=== PATIENT | female | born 1995 | race Caucasian/White ===

== ENCOUNTER 2018-09-09 17:54 | Emergency (ER) | payer MEDICAID ==
[2018-09-09 20:26] LABS: ADD MAN DIFF? NO
[2018-09-09 20:30] LABS: BASOPHILS % 0.3 % (0.0-2.0); EOSINOPHILS # 0.1 10^3/ul (0.0-0.5); EOSINOPHILS % 1.1 % (0.0-7.0); HEMATOCRIT 39.1 % (37.0-47.0); HEMOGLOBIN 13.1 g/dl (12.0-16.0); LYMPHOCYTES # 2.4 10^3/ul (0.8-2.9); LYMPHOCYTES % 27.4 % (15.0-51.0); MEAN CORPUSCULAR HEMOGLOBIN 29.2 pg (29.0-33.0); MEAN CORPUSCULAR HGB CONC 33.5 g/dl (32.0-37.0); MEAN CORPUSCULAR VOLUME 87.1 fl (82.0-101.0); MEAN PLATELET VOLUME 10.4 fl (7.4-10.4); MONOCYTES % 10.8 % (0.0-11.0); NEUTROPHIL # 5.3 10^3/ul (1.6-7.5); NEUTROPHILS % 60.2 % (39.0-77.0); PLATELET COUNT 298 10^3/UL (140-415); RED BLOOD COUNT 4.49 10^6/ul (4.20-5.40); RED CELL DISTRIBUTION WIDTH 14.4 % (11.5-14.5)
[2018-09-09 20:30] LABS: WHITE BLOOD COUNT 8.8 10^3/ul (4.8-10.8)
[2018-09-09 20:42] LABS: ADD UMIC NO; UR ASCORBIC ACID NEGATIVE (NEGATIVE); UR BILIRUBIN (Dip) NEGATIVE (NEGATIVE); UR BLOOD (Dip) NEGATIVE (NEGATIVE); UR CLARITY SLIGHTLY CLOUDY (CLEAR); UR COLOR YELLOW (YELLOW); UR GLUCOSE (Dip) NEGATIVE (NEGATIVE); UR KETONES (Dip) TRACE mg/dL (NEGATIVE); UR LEUKOCYTE ESTERASE (Dip) NEGATIVE Leu/ul (NEGATIVE); UR MUCUS FEW /HPF (NONE SEEN); UR NITRITE (Dip) NEGATIVE (NEGATIVE); UR RBC 0 /HPF (0-5); UR SPECIFIC GRAVITY (Dip) 1.028 (1.003-1.030); UR SQUAMOUS EPITHELIAL CELL FEW /HPF (FEW); UR TOTAL PROTEIN (Dip) NEGATIVE (NEGATIVE); UR UROBILINOGEN (Dip) NEGATIVE (NEGATIVE); UR WBC 2 /HPF (0-5)
== END 2018-09-09 22:14 | disposition home or self-care (01) ==
LOC: FTE 17:54
DX: O20.9 Hemorrhage in early pregnancy, unspecified (principal); R10.2 Pelvic and perineal pain; Z3A.14 14 weeks gestation of pregnancy
CPT/HCPCS: 36415; 76801; 76817; 81001; 81003; 81025; 84702; 85025; 86900; 86901; 99284-25

== ENCOUNTER 2019-04-22 21:19 | Emergency (ER) | payer MEDICAID | END 2019-04-22 22:31 | disposition home or self-care (01) | LOC: FTE 21:19 | DX: O26.893 Other specified pregnancy related conditions, third trimester (principal); R21 Rash and other nonspecific skin eruption; Z3A.37 37 weeks gestation of pregnancy | CPT/HCPCS: 99282; Z7502 ==

== ENCOUNTER 2019-04-25 11:18 | Inpatient (IN) | payer MEDICAID ==
[2019-04-25] MEDS ORDERED: MISOPROSTOL 200 MCG TAB PR ×2 (13:00→19:30)
[2019-04-25] MEDS ORDERED: CEFAZOLIN 2 GM/50 ML (PMX) 50 ML IVPB (13:00)
[2019-04-25] MEDS ORDERED: OXYTOCIN 30 UNITS/LR 500 ML IV ×2 (13:00→19:30)
[2019-04-25] MEDS ORDERED: CARBOPROST 250 MCG INJ IM ×2 (13:00→19:30)
[2019-04-25] MEDS ORDERED: TERBUTALINE 1 MG/ML INJ SC (13:00)
[2019-04-25] MEDS ORDERED: METHYLERGONOVINE 0.2 MG INJ IM ×2 (13:00→19:30)
[2019-04-25 13:27] LABS: ADD MAN DIFF? NO
[2019-04-25 13:30] LABS: BASOPHILS % 0.1 % (0.0-2.0); EOSINOPHILS # 0.1 10^3/ul (0.0-0.5); EOSINOPHILS % 1.1 % (0.0-7.0); HEMATOCRIT 25.9 % (37.0-47.0); HEMOGLOBIN 7.5 g/dl (12.0-16.0); LYMPHOCYTES # 1.2 10^3/ul (0.8-2.9); LYMPHOCYTES % 13.7 % (15.0-51.0); MEAN CORPUSCULAR HEMOGLOBIN 21.4 pg (29.0-33.0); MEAN PLATELET VOLUME 9.9 fl (7.4-10.4); MONOCYTE # 0.7 10^3/ul (0.3-0.9); MONOCYTES % 7.7 % (0.0-11.0); NEUTROPHIL # 6.5 10^3/ul (1.6-7.5); NEUTROPHILS % 76.2 % (39.0-77.0); NUCLEATED RED BLOOD CELLS # 0.1 10^3/ul (0.0-0.0); NUCLEATED RED BLOOD CELLS% 0.7 /100WBC (0.0-0.0); PLATELET COUNT 234 10^3/UL (140-415); RED CELL DISTRIBUTION WIDTH 19.6 % (11.5-14.5)
[2019-04-25 13:30] LABS: WHITE BLOOD COUNT 8.6 10^3/ul (4.8-10.8)
[2019-04-25] MEDS: LACTATED RINGER'S 1,000 ML IV ×2 (13:39→14:27)
[2019-04-25 13:48] LABS: INR 0.95; PROTIME 12.8 Sec (11.9-14.9)
[2019-04-25 13:49] LABS: PARTIAL THROMBOPLASTIN TIME 28.4 Sec (23.0-35.0)
[2019-04-25 14:24] LABS: HEPATITIS B SURFACE ANTIGEN NEGATIVE (NEGATIVE)
[2019-04-25] MEDS ORDERED: morphine SULFATE/PF (10 MG/10 ML) INJ (17:57)
[2019-04-25] MEDS ORDERED: FENTAnyl 50 MCG/ML VIAL (17:57)
[2019-04-25] MEDS ORDERED: OXYTOCIN 10 UNIT INJ (18:08)
[2019-04-25] MEDS ORDERED: ONDANSETRON 4 MG INJ (18:08)
[2019-04-25] MEDS ORDERED: PHENYLephrine (100 MCG/ML) 10ML SYG (18:10)
[2019-04-25 18:26] LABS: RAPID PLASMA REAGIN NONREACTIVE (NR)
[2019-04-25] MEDS ORDERED: TRIMETHOBENZAMIDE 100 MG/ML VIAL IM (18:30)
[2019-04-25] MEDS ORDERED: NALOXONE (0.4 MG/ML) INJ IV (18:30)
[2019-04-25] MEDS ORDERED: ONDANSETRON 4 MG INJ IV (18:30)
[2019-04-25] MEDS ORDERED: NALBUPHINE HCL (10 MG/1 ML) INJ IV (18:30)
[2019-04-25] MEDS ORDERED: DIPHENHYDRAMINE 50 MG INJ IV (18:30)
[2019-04-25] MEDS ORDERED: METOCLOPRAMIDE 10 MG INJ (18:55)
[2019-04-25] MEDS ORDERED: LANOLIN HPA 1 PKT TOP (19:30)
[2019-04-25] MEDS ORDERED: METHYLERGONOVINE 0.2 MG TAB PO (19:30)
[2019-04-25] MEDS: morphine 2 MG INJ IV (20:51)
[2019-04-25] MEDS: SENNA/DOCUSATE NA (8.6MG/50MG) TAB PO (22:15)
[2019-04-25] MEDS: OXYTOCIN 30 UNITS/LR 500 ML IV (23:01)
[2019-04-26] MEDS: LACTATED RINGER'S 1,000 ML IV (01:33)
[2019-04-26 05:14] LABS: ADD MAN DIFF? NO
[2019-04-26 05:24] LABS: BASOPHILS % 0.1 % (0.0-2.0); EOSINOPHILS % 0.1 % (0.0-7.0); HEMATOCRIT 26.6 % (37.0-47.0); LYMPHOCYTES % 7.2 % (15.0-51.0); MEAN CORPUSCULAR HEMOGLOBIN 22.3 pg (29.0-33.0); MEAN CORPUSCULAR HGB CONC 30.1 g/dl (32.0-37.0); MEAN CORPUSCULAR VOLUME 74.3 fl (82.0-101.0); MEAN PLATELET VOLUME 10.2 fl (7.4-10.4); MONOCYTE # 1.1 10^3/ul (0.3-0.9); MONOCYTES % 7.6 % (0.0-11.0); NEUTROPHIL # 11.8 10^3/ul (1.6-7.5); NEUTROPHILS % 84.3 % (39.0-77.0); NUCLEATED RED BLOOD CELLS # 0.1 10^3/ul (0.0-0.0); NUCLEATED RED BLOOD CELLS% 0.5 /100WBC (0.0-0.0); PLATELET COUNT 236 10^3/UL (140-415); RED BLOOD COUNT 3.58 10^6/ul (4.20-5.40); RED CELL DISTRIBUTION WIDTH 19.5 % (11.5-14.5)
[2019-04-26 05:49] LABS: ANION GAP 4 (5-13); BLOOD UREA NITROGEN 8 mg/dl (7-20); CALCIUM 8.9 mg/dl (8.4-10.2); CARBON DIOXIDE 23 mmol/L (21-31); CHLORIDE 104 mmol/L (97-110); CREATININE 0.48 mg/dl (0.44-1.00); Estimated GFR > 60 mL/min (>60); GLUCOSE 60 mg/dl (70-220); POTASSIUM 4.2 mmol/L (3.5-5.1); SODIUM 131 mmol/L (135-144)
[2019-04-26] MEDS: morphine 2 MG INJ IV ×3 (07:50→15:51)
[2019-04-26] MEDS: SENNA/DOCUSATE NA (8.6MG/50MG) TAB PO ×2 (08:38→21:34)
[2019-04-26] MEDS: OXYTOCIN 30 UNITS/LR 500 ML IV (08:47)
[2019-04-26] MEDS ORDERED: HYDROCODONE/APAP (5/325) TAB PO (09:30)
[2019-04-26] MEDS: HYDROCODONE/APAP (5/325) TAB PO (19:24)
[2019-04-26] MEDS: IBUPROFEN 800 MG TAB PO (21:34)
[2019-04-27] MEDS: HYDROCODONE/APAP (5/325) TAB PO ×2 (08:15→14:49)
[2019-04-27] MEDS: SENNA/DOCUSATE NA (8.6MG/50MG) TAB PO ×2 (10:06→21:20)
[2019-04-27] MEDS: MAGNESIUM HYDROXIDE 30ML CUP PO (22:21)
[2019-04-27] MEDS: BISACODYL 10 MG SUPP PR (22:21)
[2019-04-28 05:22] LABS: ADD MAN DIFF? NO
[2019-04-28 05:26] LABS: BASOPHILS % 0.1 % (0.0-2.0); EOSINOPHILS # 0.2 10^3/ul (0.0-0.5); EOSINOPHILS % 1.3 % (0.0-7.0); HEMATOCRIT 25.6 % (37.0-47.0); HEMOGLOBIN 7.6 g/dl (12.0-16.0); LYMPHOCYTES # 1.3 10^3/ul (0.8-2.9); LYMPHOCYTES % 8.8 % (15.0-51.0); MEAN CORPUSCULAR HGB CONC 29.7 g/dl (32.0-37.0); MEAN CORPUSCULAR VOLUME 74.2 fl (82.0-101.0); MEAN PLATELET VOLUME 10.2 fl (7.4-10.4); MONOCYTE # 1.5 10^3/ul (0.3-0.9); MONOCYTES % 9.8 % (0.0-11.0); NEUTROPHIL # 11.8 10^3/ul (1.6-7.5); NEUTROPHILS % 78.6 % (39.0-77.0); NUCLEATED RED BLOOD CELLS% 0.3 /100WBC (0.0-0.0); PLATELET COUNT 281 10^3/UL (140-415); RED BLOOD COUNT 3.45 10^6/ul (4.20-5.40); RED CELL DISTRIBUTION WIDTH 20.4 % (11.5-14.5)
[2019-04-28] MEDS: DIPHTH/TET/ACEL PERTUSS (ADULT) 0.5 ML VIAL IM* (09:00)
[2019-04-28] MEDS: MEASLES,MUMPS,RUBELLA VACCINE INJ SC* (09:00)
[2019-04-28] MEDS: SENNA/DOCUSATE NA (8.6MG/50MG) TAB PO (10:01)
[2019-04-28] MEDS: HYDROCODONE/APAP (5/325) TAB PO (11:26)
== END 2019-04-28 18:57 | disposition home or self-care (01) | DRG 788 ==
LOC: OBT 11:18 → MS1 04-26 01:13 → L-D 11:18 → OBT 12:29 → L-D 12:30
PROVIDERS: Obstetrics & Gynecology
PROC: 10D00Z1 Extraction of Products of Conception, Low, Open Approach (ICD-10-PCS; principal; 2019-04-25 17:30)
PROC: 3E033VJ Introduction of Other Hormone into Peripheral Vein, Percutaneous Approach (ICD-10-PCS; 2019-04-25 17:30)
DX: O65.5 Obstructed labor due to abnormality of maternal pelvic organs (principal); O34.211 Maternal care for low transverse scar from previous cesarean delivery; Z3A.38 38 weeks gestation of pregnancy; Z37.0 Single live birth
CPT/HCPCS: 80048; 85025; 85610; 85730; 86592; 86850; 86900; 86901; 87340; 88304; 88307; 90715; 99464